=== PATIENT | male | born 1945 | race Caucasian/White ===

== ENCOUNTER → 2018-07-22 08:28 | Outpatient (CLI) | payer OTHER ==
[2011-04-30 04:00] VITALS: BMI 29.5
== END | disposition home or self-care (01) ==
LOC: D.HCCARDIO 08:28
PROVIDERS: ATTEND Internal Medicine Cardiovascular Disease
DX: I42.9 Cardiomyopathy, unspecified (principal)

== ENCOUNTER → 2019-07-05 09:18 | Outpatient (CLI) | payer OTHER ==
[2011-04-30 04:00] VITALS: BMI 29.5
== END | disposition home or self-care (01) ==
LOC: D.HCCECHO 09:18
PROVIDERS: ATTEND Internal Medicine Cardiovascular Disease
DX: I25.10 Atherosclerotic heart disease of native coronary artery without angina pectoris (principal)

== ENCOUNTER → 2019-09-05 10:15 | Outpatient (CLI) | payer OTHER ==
[2011-04-30 04:00] VITALS: BMI 29.5
== END | disposition home or self-care (01) ==
LOC: D.HCCARDIO 10:15
PROVIDERS: ATTEND Internal Medicine Cardiovascular Disease
DX: I25.10 Atherosclerotic heart disease of native coronary artery without angina pectoris (principal)

== ENCOUNTER 2019-09-27 12:13 | Outpatient (CLI) | payer OTHER ==
[~2019-09-27] VITALS: Ht 182.9 cm; Wt 81.6 kg
--- NOTE | ~2019-09-27 | HEMODYNAMI ---
PATIENT:OUMAR GRANADOS MEDICAL RECORD: [id number] : 43 LOCATION:[facility] ADMISSION DATE: 09/27/19 Generatedon:09/27/201916:06 Patient name: OUMAR GRANADOS Patient #: [id number] N: [id number] : 1945 Date of study: 09/27/2019 Page: Of Hemodynamic Procedure Report Patient Data Patient Demographics Procedure consent was obtained First Name: OUMAR Gender: Male Last Name: ROBERTA : 1945 [facility] Initial: TEVIN Age: 73 year(s) Patient #: [id number] Race: SSN: [id number] Additional ID: [id number] Contact details [address]: [address] [place] [address] [place] State: [place] City: [place] Zip code: [address] Past Medical History Allergies: No known allergies Admission Admission Data Admission Date: 09/27/2019 Admission Time: 12:13 Arrival Date: 09/27/2019 Arrival Time: 0:00 Admit Source: Other [facility] #: [id number] Height (in.): 72 BSA: 2.03 (m2) Height (cm.): 182.88 BMI: 24.28 (kg/m2) Weight (lbs.): 179 Weight (kg.): 81.19 Lab Results Lab Result Date: 09/27/2019 Lab Result Time: 0:00 Biochemistry Name Units Result Min Max BUN mg/dl 25 --(----)-* 7 18 Creatinine mg/dl 1.1 --(--*-)-- 0.6 1.3 eGFR ml/min 69 *-(----)-- 90 120 NONAFRICAN CBC Name Units Result Min Max Hemoglobin g/dl 13.7 --(*---)-- 13.5 17.5 Procedure Procedure Types Cath Procedure Diagnostic Procedure LHC LHC w/Coronaries w/Grafts Sedation Charges Moderate Sedation up to 45 minutes PCI Procedure Coronary Stent Coronary Stent Initial Hemochron ACT Test Procedure Description Procedure Date Procedure Date: 09/27/2019 Procedure Start Time: 15:25 Procedure End Time: 15:59 Procedure Staff Name Function Jonatan Sorto MD Performing Physician Charlotte Castillo RT Monitor Rajwinder Hopkins RN Nurse Karina Bailey RT Scrub Indication Abnormal nuclear perfusion test Procedure Data Cath Procedure Fluoroscopy Diagnostic fluoroscopy Total fluoroscopy Time: 8.5 time: 8.5 min min Diagnostic fluoroscopy Total fluoroscopy dose: 967 dose: 967 mGy mGy Contrast Material Contrast Material Type Amount (ml) Isovue 300 145 Entry Location Entry Primary Successful Side Size Upsize Upsize Entry Closure Succes sful Closure Location (Fr) 1 (Fr) 2 (Fr) Remarks Device Remarks Femoral Right 5 Fr 6 Fr Exoseal artery Short Estimated blood loss: 10 ml Diagnostic catheters Device Type Used For End Catheter Placement MULTIPACK JL 4.0 5Fr Procedure catheter DIAGNOSTIC AR MOD 5Fr Procedure Catheter ([id number]) DIAGNOSTIC IM 5Fr Procedure catheter ([id number]) MULTIPACK Pigtail 5 Fr Ventriculography catheter Procedure Complications No complications Procedure Medications Medication Administration Route Dosage 0.9% NaCl I.V. 100 ml/hr Oxygen etCO2 Nasal cannula 2 l/min Lidocaine 2% added to field 20 Heparin Flush Bag added to field 2 bags (1000units/500ml NS) Versed I.V. 2 mg Fentanyl I.V. 50 mcg Versed I.V. 2 mg Fentanyl I.V. 50 mcg Heparin Bolus I.V. 8000 units Versed I.V. 2 mg Hemodynamics Rest BSA: 2.03 (m2) O2 Consumption: Estimated: 235.28 (ml/min) O2 Consumption indexed : Estimated:115.9 (ml/min/m) Heart Rate: 73 (bpm) Pressure Samples Time Site Value (mmHg) Purpose Heart Use Rate(bpm) 15:38 LV 124/2,19 Snapshot 73 15:38 LV 120/1,19 Snapshot 73 Gradients Valve Time Site Site Mean SEP/DFP Peak To Heart Use 1 2 (mmHg) (sec/min) Peak Rate (mmHg) (bpm) Aortic 15:38 LV AO 73 Snapshots Pre Cath Intra NCS Post Cath Vital Signs Time Heart Resp SPO2 etCO2 NIBP (mmHg) Rhythm Pain Sedation Rate (ipm) (%) (mmHg) Status Level (bpm) 15:08:22 75 13 99 34.4 125/83(110) NSR 0 (11) 10(A) , No pain 15:12:36 73 14 98 36.6 120/72(112) NSR 0 (11) 10(A) , No pain 15:16:51 71 11 98 20.2 120/68(93) NSR 0 (11) 10(A) , No pain 15:21:04 71 11 99 35.1 118/68(100) NSR 0 (11) 10(A) , No pain 15:25:16 71 10 99 29.9 116/70(103) NSR 0 (11) 10(A) , No pain 15:29:30 70 10 97 35.9 115/67(96) NSR 0 (11) 9(A) , No pain 15:33:42 73 10 97 37.3 113/65(98) NSR 0 (11) 9(A) , No pain 15:37:56 74 12 98 27.6 108/61(89) NSR 0 (11) 9(A) , No pain 15:42:06 73 10 98 35.1 115/67(100) NSR 0 (11) 9(A) , No pain 15:46:18 70 13 99 36.6 114/68(103) NSR 0 (11) 10(A) , No pain 15:50:30 75 10 98 30.6 104/67(92) NSR 0 (11) 10(A) , No pain 15:54:38 77 16 99 35.2 114/70(92) NSR 0 (11) 10(A) , No pain 15:58:48 76 12 100 35.2 118/74(95) NSR 0 (11) 10(A) , No pain Medications Time Medication Route Dose Verified Delivered Reason Notes Effectiveness by by 15:07:25 0.9% NaCl I.V. 100 Jonatan Rajwinder used for ml/hr Macario Hopkins newspaper photojournalist 15:07:32 Oxygen etCO2 2 Jonatan Rajwinder used for Nasal l/min Macario Hopkins procedure cannula RN 15:07:37 Lidocaine 2% added 20ml Jonatan Jonatan for local to vial Macario Sorto MD anesthetic field 15:07:41 Heparin Flush added 2 Jonatan Jonatan used for Bag to bags Macario Sorto MD procedure (1000units/500ml field NS) 15:19:27 Versed I.V. 2 mg Jonatan Rajwinder for sedation Macario Hopkins RN 15:19:36 Fentanyl I.V. 50 Jonatan Rajwinder for sedation mcg Macario Hopkins RN 15:26:20 Versed I.V. 2 mg Jonatan Rajwinder for sedation Macario Hopkins RN 15:26:27 Fentanyl I.V. 50 Jonatan Rajwinder for sedation mcg Macario Hopkins RN 15:46:55 Heparin Bolus I.V. 8000 Jonatan Rajwinder for verif ied units Macario Hopkins anticoagulation with Dr. LEXUS Sorto 15:47:18 Versed I.V. 2 mg Jonatan Rajwinder for sedation Macario Hopkins RN Procedure Log Time Note 14:51:23 Informed consent obtained and on chart 14:52:13 Indication : Abnormal nuclear perfusion test 14:53:50 Diagnostic Cath Status : Elective 14:55:20 Arrival Date: 09/27/2019 12:00:00 AM 14:55:33 Admit Source: Other 14:55:39 Patient Height : 72 inches 14:55:42 Patient Weight : 179 lbs 14:57:33 Lab Result : BUN 25 mg/dl 14:57:33 Lab Result : Creatinine 1.1 mg/dl 14:57:33 Lab Result : eGFR NONAFRICAN 69 ml/min 14:57:33 Lab Result : Hemoglobin 13.7 g/dl 14:57:47 Procedure Status Elective Heart Cath (OP). 14:57:51 Charlotte AVILES(R) sent for patient. Start room use. 14:58:14 Time tracking: Regular hours (M-F 7:00 - 5:00) 14:58:19 Plan of Care:Hemodynamics will remain stable., Cardiac rhythm will remain stable., Comfort level will be maintained., Respiratory function will remain adequate., Patient/ family verbilizes understanding of procedure., Procedure tolerated without complication., Recovers from procedure without complications.. 14:58:25 Patient received from Pre/Post Procedure Room to CCL 1 Alert and oriented. Tansferred to table in Supine position. 14:58:27 Warm blankets applied, and anderson hugger turned on for patient comfort. 14:58:28 Correct patient and procedure confirmed by team. 14:58:29 ECG and BP/O2 sat monitors applied to patient. 14:58:41 H&P Date Dictated: 08/28/2019 Within 30 days and on chart.. 14:58:43 Pre-procedure instructions explained to patient. 14:58:45 Family in waiting room. 14:58:49 Patient NPO since Midnight. 14:59:13 Patient allergic to No known allergies 14:59:16 Is the patient allergic to Iodine/contrast media? No. 14:59:22 Was the patient premedicated? Yes 14:59:23 Is patient on blood thinner?No 15:07:14 Vital chart was started 15:07:25 0.9% NaCl 100 ml/hr I.V. was administered by Rajwinder Hopkins RN; used for procedure; Verbal order read back and verified. 15:07:32 Oxygen 2 l/min etCO2 Nasal cannula was administered by Rajwinder Hopkins RN; used for procedure; Verbal order read back and verified. 15:07:37 Lidocaine 2% 20ml vial added to field was administered by Jonatan Sorto MD; for local anesthetic; Verbal order read back and verified. 15:07:41 Heparin Flush Bag (1000units/500ml NS) 2 bags added to field was administered by Jonatan Sorto MD; used for procedure; Verbal order read back and verified. 15:09:42 Patient diabetic? No. 15:09:48 Snore? Yes 15:09:50 Sleep apnea? No 15:09:51 Sticks out tongue? Yes 15:10:05 IV patent on arrival in right antecubital with 0.9% NaCl at KVO. 15:10:09 Lab results completed and on chart. 15:10:30 Stress Test: yes; abnormal inferior 15:10:35 Right groin area was prepped with chlora-prep and draped in sterile fashion 15:10:37 Alarms reviewed by R. N. 15:10:38 Sharps counted by scrub and verified by R.N. 15:10:39 Physician paged 15:10:52 2) 60-89 Mildly reduced kidney function, and other findings (as for stage 1) point to kidney disease. 15:10:57 Maximum allowable contrast dose (3.7 X eGFR X 0.75)? ml. 15:11:00 Maximum allowable contrast dose (3.7 X eGFR X 0.75)191 ml. 15:16:38 Zero performed for pressure channel P1 15:18:48 Physician arrived 15:18:49 --------ALL STOP TIME OUT------ 15:18:50 Final Timeout: patient, procedure, and site verified with staff and physician. All members of the team are in agreement. 15:18:52 Right groin site verified by team. 15:18:57 Fire Safety Assessment: A--An alcohol-based skin anteseptic being used preoperatively., C--Open oxygen or nitrous oxide is being used., D--An ESU, laser, or fiber-optic light is being used. 15:19:01 Physical assessment completed. ASA score P 2 - A patient with mild systemic disease as per Jonatan Sorto MD. 15:19:05 Sedation plan: IV Moderate Sedation Medication:Versed, Fentanyl 15:19:13 Use device set Femoral Dx 15:19:14 ACIST Syringe (95912) opened to sterile field. 15:19:15 Bag Decanter (2002S) opened to sterile field. 15:19:16 Medline Cath Pack ([id number]) opened to sterile field. 15:19:18 ACIST Hand Control (37252) opened to sterile field. 15:19:18 ACIST Manifold (08082) opened to sterile field. 15:19:19 DIAGNOSTIC Multipack 5Fr catheter set ([id number]) opened to sterile field. 15:19:21 Tegaderm 4 x 4 (1626W) opened to sterile field. 15:19:22 SHEATH 5FR [place] (GWO706) opened to sterile field. 15:19:22 EMERALD Guide Wire (238-390) opened to sterile field. 15:19:27 Versed 2 mg I.V. was administered by Rajwinder Hopkins RN; for sedation; Verbal order read back and verified. 15:19:36 Fentanyl 50 mcg I.V. was administered by Rajwinder Hopkins RN; for sedation; Verbal order read back and verified. 15:24:08 Procedure started. 15:24:08 Full Disclosure recording started 15:25:07 Local anesthetic to right femoral artery with Lidocaine 2% by Jonatan Sorto MD.INITIAL ACCESS ONLY 15:25:34 A 5 Fr sheath was inserted into the Right Femoral artery 15::47 J wire advanced. 15:26:20 Versed 2 mg I.V. was administered by Rajwinder Hopkins RN; for sedation; Verbal order read back and verified. 15:26:27 Fentanyl 50 mcg I.V. was administered by Rajwinder Hopkins RN; for sedation; Verbal order read back and verified. 15:28:09 A MULTIPACK JL 4.0 5Fr catheter was advanced over the wire and used for Procedure. 15:29:29 LCA angiography performed. 15:29:36 Catheter removed. 15:29:54 A DIAGNOSTIC AR MOD 5Fr Catheter ([id number]) was advanced over the wire and used for Procedure. 15:29:59 RCA angiography performed. 15:31:05 SVG to RCA angiography performed. 15:32:17 SVG to Circ angiography performed. 15:33:42 A DIAGNOSTIC IM 5Fr catheter ([id number]) was advanced over the wire and used for Procedure. 15:33:57 ARAUJO to LAD angiography performed. 15:35:56 Catheter removed. 15:36:04 A MULTIPACK Pigtail 5 Fr catheter was advanced over the wire and used for Ventriculography. 15:36:12 LV gram done using WELSH 15:38:35 EF : 50 % 15:38:49 Catheter removed. 15:42:25 Proceeding to intervention. 15:43:00 SHEATH 6FR [place] (WPO230) opened to sterile field. 15:43:01 INFLATOR Merit BasixCompak (EJ2977) opened to sterile field. 15:43:02 WHISPER 300cm guide wire ([id number]) opened to sterile field. 15:43:02 TUBING High Pressure Extension Tubing (Macario) (RC3800Y) opened to sterile field. 15:43:16 Sheath upsized to a 6 Fr Short. 15:43:53 GUIDE 6FR XBLAD 3.5 catheter ([id number]) opened to sterile field. 15:44:57 Wire advanced across lesion. 15:46:55 Heparin Bolus 8000 units I.V. was administered by Rajwinder Hopkins RN; for anticoagulation; verified with Dr. Sorto Verbal order read back and verified. 15:47:18 Versed 2 mg I.V. was administered by Rajwinder Hopkins RN; for sedation; Verbal order read back and verified. 15:53:34 Place stent Inflation Number: 1 A JOSE ALBERTO OTW 3.0 x 22 stent ([id number]) was prepped and advanced across the Mid CX 90. The stent was deployed at 12 KRISHNA for 0:13 (min:sec) . 15:54:14 EXOSEAL 6Fr (EX600) opened to sterile field. 15:54:39 Sheath removed intact; hemostasis achieved with Exoseal to the Right Femoral artery. 15:54:42 Procedure ended.(Physican Out) 15:54:58 Fluoroscopy time 08.50 minutes. 15:55:03 Flurop Dose total: 967 15:55:03 Fluoroscopy dose: 967 mGy 15:55:10 Dose Area Product 96156 mGy/cm. 15:55:17 Contrast amount:Isovue 300 145ml. 15:55:20 Maximum allowable dose exceeded? No. 15:55:22 Insertion/operative site no bleeding no hematoma. 15:55:25 Post-op/insertion site Right Femoral artery dressed using a 4 x 4 and Tegaderm. 15:55:36 Post right femoral artery:stable 15:56:27 Post Procedure Pulses reassessed and unchanged 15:56:29 Estimated blood loss: 10 ml 15:56:31 Post procedure instruction explained to patient.Patient verbalizes understanding. 15:57:08 Procedure type changed to Cath procedure, Diagnostic procedure, LHC, C w/Coronaries w/Grafts, Sedation Charges, Moderate Sedation up to 45 minutes, PCI procedure, Coronary Stent, Coronary Stent Initial, Hemochron ACT Test 15:57:54 Procedure and supply charges have been captured, reviewed, submitted and are correct. 15:59:16 Procedure Complication : No complications 15:59:18 Vital chart was stopped 15:59:21 [facility] Findings: MVD- PCI performed (see procedure note) 15:59:28 Operative report dictated upon procedure completion. 15:59:29 See physician's report for complete and final results. 15:59:31 Report given to Pre/Post Procedure Room. 15:59:34 Patient transfered to Pre/Post Procedure Room with Stretcher. 15:59:36 Procedure ended. 15:59:36 Full Disclosure recording stopped 15:59:40 End room use (Document Last) 15:59:55 ACC-PCI Only Patient was given prescriptions, or instructed by Jonatan Sorto MD to start/continue the following medications upon discharge: Plavix 16:00:21 ACT drawn and resulted at >400- out of range seconds. (normal therapeutic range 180-240 seconds). Intervention Summary Intervention Notes Time ActionType Lesion and Equipment Action# Pressure Duration Attributes Used 15:53:34 Place stent Mid CX JOSE ALBERTO OTW 3.0 1 12 00:14 x 22 stent ([id number]) Device Usage Item Name Manufacture Quantity Catalog Hospital Part Current Mini mal Lot# / Number Charge Number Stock Stock Serial# Code ACIST Syringe Acist 1 19030 681966 284302 310339 20 (31766) Medical Systems Inc Bag Decanter Microtek 1 2001S 442783 69180 530153 5 (2001S) Medical Inc. Medline Cath Medline 1 [id number] 404626 57706 400345 5 Pack ([id number]) ACIST Hand Acist 1 50283 377291 354820 433567 5 Control Medical (22776) Systems Inc ACIST Acist 1 42526 229535 809514 420154 5 Manifold Medical (86909) Systems Inc DIAGNOSTIC Cardinal 1 MA3416 070664 57352 877220 30 Multipack 5Fr Health catheter set (IM8056) Tegaderm 4 x 3M 1 1626W 234866 282546 832889 5 4 (1626W) SHEATH 5FR Terumo 1 VWZ064 254608 647126 849897 5 [place] (IUF305) EMERALD Guide Cardinal 1 502-455 346029 804793 009342 5 Wire Health (502-455) MULTIPACK JL Cardinal 1 186820 5 4.0 5Fr Health catheter DIAGNOSTIC AR Cardinal 1 134679Q 006176 861821 318287 15 MOD 5Fr Health Catheter (765748A) DIAGNOSTIC IM Cardinal 1 [id number] 998236 278371 086104 5 5Fr catheter Health (982546Q) MULTIPACK Cardinal 1 450582 5 Pigtail 5 Fr Health catheter SHEATH 6FR Terumo 1 ZFR680 552962 779375 316949 40 [place] (YRN379) INFLATOR Merit 1 HQ2220 213267 686184 434186 15 [place] [facility] Medical BasixCompak (EC5846) WHISPER 300cm Santiago 1 [id number] 666907 935900 920466 5 guide wire Vascular (3755012PB) TUBING High Merit 1 [id number] 228101 37617 532761 10 Pressure Medical Extension Tubing (Macario) (UY6270A) GUIDE 6FR Cardinal 1 [id number] 383324 408071 269896 10 XBLAD 3.5 Health catheter (13919793) JOSE ALBERTO OTW 3.0 Medtronic 1 [id number] 277140 1440365 737318 5 [id number] x 22 stent ([id number]) EXOSEAL 6Fr Cardinal 1 EX600 073920 533170 015621 10 (EX600) Health Signature Audit [place] Stage Time Signature Unsigned Intra-Procedure 09/27/2019 Charlotte Castillo 4:04:59 PM RT(R) Intra-Procedure 09/27/2019 Jonatan Sorto MD 4:05:37 PM Intra-Procedure 09/27/2019 Rajwinder Hopkins 4:06:02 PM RN Intra-Procedure 09/27/2019 Jonatan Sorto MD 4:06:[address] [address]
[2019-09-27] MEDS ORDERED: BAYER CHEWABLE81 MG PO (12:45)
[2019-09-27] MEDS ORDERED: LIPITOR10 MG PO (12:45)
[2019-09-27] MEDS ORDERED: COREG 3.1253.125 MG PO (12:45)
[2019-09-27] MEDS ORDERED: REMERON15 MG PO (12:45)
[2019-09-27] MEDS ORDERED: GABAPENTIN300 MG PO (12:46)
[2019-09-27 13:09] VITALS: BP 128/69; Ht 182.9 cm; Wt 81.6 kg
[2019-09-27 13:28] LABS: BASOPHILS 0.2 % (0-2); EOSINOPHILS 2.3 % (0-7); HEMATOCRIT 40.1 % (42.0-54.0); HEMOGLOBIN 13.7 g/dL (13.5-17.5); IMMATURE GRANULOCYTES 0.2 % (0-5); LYMPHOCYTES 29.6 % (15-50); MCH 31.1 pg (26.0-34.0); MCHC 34.2 g/dL (31.0-37.0); MCV 90.9 fL (80.0-100.0); MEAN PLATELET VOLUME 9.4 fL (7.4-10.4); MONOCYTES 6.4 % (2-11); NEUTROPHILS 61.3 % (40-80); RBC 4.41 10x6/uL (4.20-6.10); RDW 12.6 % (11.5-14.5); WBC 4.9 10x3/uL (4.8-10.8)
[2019-09-27 13:29] LABS: PLATELET COUNT 185 10x3/uL (130-400)
[2019-09-27 13:50] LABS: CALCIUM 8.9 mg/dL (8.5-10.1); CARBON DIOXIDE 27.8 mmol/L (21.0-32.0); CHOL - HDL RATIO 3.6 ratio (2.3-4.9); CREATININE - SERUM 1.1 mg/dL (0.6-1.3); LDL-HDL RATIO 2.2 ratio (1.5-3.5); POTASSIUM - SERUM 3.8 mmol/L (3.5-5.1)
--- NOTE | 2019-09-27 16:15 | NUR ---
PT REC'D TO ROOM 3 VIA STRETCHER FROM GARBAGE COLLECTOR DRIVER. MONITORS ESTAB. AT BS. SEE SUPERINTENDENT GAS DIST[employer]BUTION. ALARMS ON AND C/L IN REACH.
--- NOTE | 2019-09-27 16:30 | NUR ---
R GROIN SITE SOFT, C/D/I, NO S/S BLEEDING OR HEMATOMA. R LEG/FOOT WARM WITH PALP PULSES AND BRISK CAP REFILL. VSS. PT DENIES ANY PAIN OR NEEDS. ALARMS ON AND C/L IN REACH.
--- NOTE | 2019-09-27 17:00 | NUR ---
DR BATISTA IN TO UPDATE PT AND HIS . R GROIN SITE SOFT, C/D/I, NO S/S BLEEDING OR HEMATOMA. R FOOT WARM WITH PALP PULSES. VSS. C/L IN REACH.
--- NOTE | 2019-09-27 17:15 | NUR ---
R GROIN SITE C/D/I, NO S/S BLEEDING OR HEMATOMA. VSS. PT VOIDED 250 ML CLEAR, YELLOW URINE. AT BS.
--- NOTE | 2019-09-27 17:45 | NUR ---
R GROIN SITE SOFT, NO S/S BLEEDING OR HEMATAMA. PULSES PALP. VSS. PT RESTING QUIETLY, ALARMS ON AND C/L IN REACH.
[2019-09-27] MEDS ORDERED: PLAVIX75 MG PO (18:07)
--- NOTE | 2019-09-27 18:15 | NUR ---
R GROIN SITE C/D/I, NO S/S BLEEDING OR HEMATOMA. PT REFUSED SANDWICH, GIVEN PEANUT BUTTER AND CRACKERS PER REQUEST, ASSISTING PT. VSS.
--- NOTE | 2019-09-27 18:42 | NUR ---
R GROIN SITE C/D/I, NO S/S BLEEDING OR HEMATOMA. PULSES PALP. PT WATCHING TV, AT BS. C/L IN REACH.
--- NOTE | 2019-09-27 19:00 | NUR ---
R GROIN SITE SOFT, NO S/S BLEEDING OR HEMATOMA. VSS. HOB GRADUALLY ELEVATED. PT DENIES PAIN OR NEEDS. C/L IN REACH.
--- NOTE | 2019-09-27 19:35 | NUR ---
ALL DISCHARGE INSTRUCTIONS REVIEWED WITH PT AND HIS INCLUDING RESTRICTIONS, NEW MEDICATION, AND TO CALL FOR F\U APPT.
--- NOTE | 2019-09-27 19:39 | NUR ---
R GROIN SITE SOFT, C/D/I. PIV D/C'D INTACT - DSG APPLIED. PT ALLOWED UP TO GET DRESSED AND GO TO BR INDEPENDENTLY.
--- NOTE | 2019-09-27 19:50 | NUR ---
PT D/C'D VIA WC TO PRIVATE VEHICLE WITH ALL PAPERWORK, NEW SCRIPT, AND BELONGINGS.
== END 2019-09-27 19:50 | disposition home or self-care (01) ==
LOC: D.CATH 12:13
PROVIDERS: ATTEND Internal Medicine Cardiovascular Disease
DX: I25.119 Atherosclerotic heart disease of native coronary artery with unspecified angina pectoris (principal); R94.39 Abnormal result of other cardiovascular function study; E78.5 Hyperlipidemia, unspecified; I42.9 Cardiomyopathy, unspecified
CPT/HCPCS: 93459; C9600

== ENCOUNTER → 2020-08-16 10:50 | Outpatient (CLI) | payer MEDICARE ==
[2019-09-27 13:09] VITALS: BMI 24.4
[~2020-08-16 10:50] MED LIST: BAYER CHEWABLE81 MG PO; COREG 3.1253.125 MG PO; GABAPENTIN300 MG PO; LIPITOR10 MG PO; PLAVIX75 MG PO; REMERON15 MG PO
== END | disposition home or self-care (01) ==
LOC: D.HCCECHO 10:50
PROVIDERS: ATTEND Internal Medicine Cardiovascular Disease
DX: I25.10 Atherosclerotic heart disease of native coronary artery without angina pectoris (principal)